=== PATIENT | female | born 1980 | race Caucasian/White ===

== ENCOUNTER 2016-06-07 14:20 | Emergency (ER) | payer BC ==
[~2016-06-07] VITALS: Ht 170.2 cm; Wt 86.0 kg
[2016-06-07 15:00] VITALS: BP 107/74; PULSE 72; RESP 17; TEMP 98.4; O2SAT 98
[2016-06-07] MEDS ORDERED: ONDANSETRON HCL 4 MG/2 ML VIAL IVP ONE (15:15)
[2016-06-07] MEDS ORDERED: SODIUM CHLORIDE 0.9% FLUSH 5 ML FLUSH IVF PRN (15:15)
[2016-06-07] MEDS ORDERED: SODIUM CHLOR 0.9% 1000 ML INJ 1,000 ML IV ONE ×2 (15:15)
--- NOTE | 2016-06-07 15:20 | PD ---
HPI Chief Complaint: GI Complaint Time Seen by Provider: 15:05 Travel History International Travel<30 days: No Contact w/Intl Traveler<30days: No Traveled to known affect area: No History of Present Illness HPI This 36-year-old female says she's had vomiting and diarrhea for the last 4 days. She says that several people where she works at been sick. Having a little bit of abdominal pain. She is not aware of fever or chills. There is been no recent travel. PFSH Past Medical History Medical History: Denies Significant Hx Immunizations Current: Yes Influenza Vaccination: No ?: Not LMP: 05/26/2016 Past Surgical History Other Surgery: Yes (BREAST REDUCTION 2003) Social History Alcohol Use: Yes (OCCASIONAL) Tobacco Use: Yes (/2 PPD) Substance Use: Yes (RARE THC) Allergies-Medications (Allergen,Severity, Reaction): Coded Allergies: No Known Allergies (Unverified , 06/07/16) Reported Meds & Prescriptions Reported Meds & Active Scripts Active No Active Prescriptions or Reported Medications Review of Systems General / Constitutional: No: Fever, Chills Eyes: No: Diploplia HENT: No: Headaches, Vertigo Cardiovascular: No: Chest Pain or Discomfort Respiratory: No: Cough Gastrointestinal: Positive: Vomiting, Diarrhea Genitourinary: No: Frequency, Dysuria Musculoskeletal: No: Myalgias Skin: No Rash Neurologic: No: Weakness Physical Exam Narrative GENERAL: Well-developed female SKIN: Warm and dry. HEAD: Atraumatic. Normocephalic. EYES: Pupils equal and round. No scleral icterus. No injection or drainage. ENT: No nasal bleeding or discharge. Mucous membranes dry NECK: Trachea midline. No JVD. CARDIOVASCULAR: Regular rate and rhythm. No murmur appreciated. RESPIRATORY: No accessory muscle use. Clear to auscultation. Breath sounds equal bilaterally. GASTROINTESTINAL: Abdomen soft, non-tender, nondistended. Hepatic and splenic margins not palpable. MUSCULOSKELETAL: No obvious deformities. No clubbing. No cyanosis. No edema. NEUROLOGICAL: Awake and alert. No obvious cranial nerve deficits. Motor grossly within normal limits. Normal speech. PSYCHIATRIC: Appropriate mood and affect; insight and judgment normal. Data Data Last Documented VS Vital Signs Date Time Temp Pulse Resp B/P Pulse Ox O2 Delivery O2 Flow Rate FiO2 06/07/16 15:00 98.4 72 17 107/74 98 Orders Complete Blood Count With Diff (06/07/16 15:15) Basic Metabolic Panel (Bmp) (06/07/16 15:15) Iv Access Insert/Monitor (06/07/16 15:15) Ondansetron Inj (Zofran Inj) (06/07/16 15:15) Sodium Chlor 0.9% 1000 Ml Inj (Ns 1000 M (06/07/16 15:15) Sodium Chloride 0.9% Flush (Ns Flush) (06/07/16 15:15) Sodium Chlor 0.9% 1000 Ml Inj (Ns 1000 M (06/07/16 15:15) Labs Laboratory Tests Test 06/07/16 15:40 White Blood Count 5.1 TH/MM3 Red Blood Count 4.65 MIL/MM3 Hemoglobin 13.6 GM/DL Hematocrit 39.7 % Mean Corpuscular Volume 85.4 FL Mean Corpuscular Hemoglobin 29.3 PG Mean Corpuscular Hemoglobin 34.3 % Concent Red Cell Distribution Width 12.3 % Platelet Count 304 TH/MM3 Mean Platelet Volume 8.1 FL Neutrophils (%) (Auto) 42.8 % Lymphocytes (%) (Auto) 41.8 % Monocytes (%) (Auto) 7.8 % Eosinophils (%) (Auto) 3.1 % Basophils (%) (Auto) 4.5 % Neutrophils # (Auto) 2.2 TH/MM3 Lymphocytes # (Auto) 2.1 TH/MM3 Monocytes # (Auto) 0.4 TH/MM3 Eosinophils # (Auto) 0.2 TH/MM3 Basophils # (Auto) 0.2 TH/MM3 CBC Comment DIFF FINAL Differential Comment Sodium Level 143 MEQ/L Potassium Level 3.9 MEQ/L Chloride Level 109 MEQ/L Carbon Dioxide Level 28.4 MEQ/L Anion Gap 6 MEQ/L Blood Urea Nitrogen 11 MG/DL Creatinine 0.84 MG/DL Estimat Glomerular Filtration 78 ML/MIN Rate Random Glucose 92 MG/DL Calcium Level 8.6 MG/DL [facility] Medical Decision Making Medical Screen Exam Complete: Yes Emergency Medical Condition: Yes Medical Record Reviewed: Yes Differential Diagnosis Differential includes food poisoning, gastroenteritis, dehydration Narrative Course Blood work and IV fluids have been ordered. Lab work is normal. Patient has been given IV fluids and Zofran and is feeling a bit better. Impression is gastroenteritis. She'll be released with prescription for oral Zofran Diagnosis Primary Impression: Acute gastroenteritis Scripts Ondansetron Odt (Zofran Odt)4 Mg Tab4 Mg SL Q6HR PRN (Nausea/Vomiting) #10 TAB Ref 0 Prov:Kelvin Velez MD 06/07/16 Disposition: 01 DISCHARGE HOME Condition: Stable Kelvin Velez MD Jun 07, 2016 15:20
[2016-06-07 15:56] LABS: AUTOMATED NEUTROPHIL # 2.2 TH/MM3 (1.8-7.7); BASOPHIL # 0.2 TH/MM3 (0-0.2); BASOPHIL % 4.5 % (0.0-2.0); EOSINOPHIL # 0.2 TH/MM3 (0-0.4); EOSINOPHIL % 3.1 % (0.0-4.0); HEMATOCRIT 39.7 % (35.0-46.0); HEMO FLAGS DIFF FINAL; LYMPH % 41.8 % (9.0-44.0); LYMPHOCYTE # 2.1 TH/MM3 (1.0-4.8); MEAN CELL VOLUME 85.4 FL (80.0-100.0); MEAN CORPUSCULAR HEMOGLOBIN 29.3 PG (27.0-34.0); MEAN CORPUSCULAR HGB CONC 34.3 % (32.0-36.0); MONO % 7.8 % (0.0-8.0); NEUT % 42.8 % (16.0-70.0); PLATELET COUNT 304 TH/MM3 (150-450); RED BLOOD COUNT 4.65 MIL/MM3 (4.00-5.30); RED CELL DISTRIBUTION WIDTH 12.3 % (11.6-17.2); WHITE BLOOD COUNT 5.1 TH/MM3 (4.0-11.0)
[2016-06-07 16:04] LABS: POTASSIUM 3.9 MEQ/L (3.5-5.1)
[2016-06-07 16:07] LABS: BICARBONATE 28.4 MEQ/L (21.0-32.0)
[2016-06-07 16:15] VITALS: BP 106/56; PULSE 61; RESP 16; O2SAT 99
[2016-06-07] MEDS ORDERED: ZOFR4TAB3 SL (16:17)
[2016-06-07 17:15] VITALS: BP 105/57; PULSE 57; RESP 16; O2SAT 99
== END 2016-06-07 17:33 | disposition home or self-care (01) ==
LOC: PHED 14:20
DX: K52.9 Noninfective gastroenteritis and colitis, unspecified (principal); R10.9 Unspecified abdominal pain; F17.210 Nicotine dependence, cigarettes, uncomplicated; F12.90 Cannabis use, unspecified, uncomplicated; R19.7 Diarrhea, unspecified
CPT/HCPCS: 80048; 85025; 96361; 96374; 99284; J2405; J7030

== ENCOUNTER 2017-04-10 20:58 | Emergency (ER) | payer BC ==
[~2017-04-10] VITALS: Ht 170.2 cm; Wt 86.7 kg
[~2017-04-10 20:58] MED LIST: ZOFR4TAB3 SL
[2017-04-10 21:18] VITALS: BP 122/57; PULSE 75; RESP 16; TEMP 98.6; O2SAT 98
[2017-04-11] VITALS: BP 112/81; PULSE 70; RESP 18; TEMP 98.3; O2SAT 100
--- NOTE | 2017-04-11 00:14 | PD ---
HPI Chief Complaint: Cold / Flu Symptoms Time Seen by Provider: 00:10 Travel History International Travel<30 days: No Contact w/Intl Traveler<30days: No Traveled to known affect area: No History of Present Illness HPI The patient is a 37-year-old female that has had generalized myalgias, persistent cough productive of green/brown sputum, sore throat for about 3 days. Occasionally she has some slight blood in her stool and has a diarrhea stool. She denies any abdominal pain or flank pain. She denies any dysuria, frequency or urgency. She states there is no possibility of . Her last menstrual period was on the eighth of last month and normal. PFS Past Medical History Medical History: Denies Significant Hx Diminished Hearing: No Immunizations Current: Yes Tetanus Vaccination: < 5 Years Influenza Vaccination: No ?: Unknown LMP: 03/09/17 : 2 Miscarriage: 2 Past Surgical History Other Surgery: Yes (BREAST REDUCTION ) Social History Alcohol Use: Yes (SOCIALLY) Tobacco Use: Yes (1 PPD ) Substance Use: Yes (MARIJUANA OCC ) Allergies-Medications (Allergen,Severity, Reaction): Coded Allergies: No Known Allergies (Unverified , 06/07/16) Reported Meds & Prescriptions Reported Meds & Active Scripts Active No Active Prescriptions or Reported Medications Review of Systems Except as stated in HPI: all other systems reviewed are Neg Physical Exam Narrative GENERAL: The patient is alert, oriented 3 in no respiratory distress. Her vital signs are normal. SKIN: Focused skin assessment warm/dry. HEAD: Atraumatic. Normocephalic. EYES: Pupils equal and round. No scleral icterus. No injection or drainage. ENT: No nasal bleeding or discharge. Mucous membranes pink and moist. The throat is minimally red and erythematous without exudate or abscess. The tympanic membranes are clear. NECK: Trachea midline. No JVD. CARDIOVASCULAR: Regular rate and rhythm. No murmur appreciated. RESPIRATORY: No accessory muscle use. Clear to auscultation. Breath sounds equal bilaterally. GASTROINTESTINAL: Abdomen soft, non-tender, nondistended. Hepatic and splenic margins not palpable. No guarding or rebound is present. MUSCULOSKELETAL: No obvious deformities. No clubbing. No cyanosis. No edema. NEUROLOGICAL: Awake and alert. No obvious cranial nerve deficits. Motor grossly within normal limits. Normal speech. PSYCHIATRIC: Appropriate mood and affect; insight and judgment normal. Data Data Last Documented VS Vital Signs Date Time Temp Pulse Resp B/P (MAP) Pulse Ox O2 Delivery O2 Flow Rate FiO2 04/11/17 00:50 20 04/11/17 00:00 98.3 70 112/81 (91) 100 Room Air Orders Orders Group A Rapid Strep Screen (04/11/17 00:10) Influenzae A/B Antigen (04/11/17 00:10) Chest, Pa & Lat (04/11/17 00:10) Strep Culture (Group A) (04/11/17 00:10) MDM Medical Decision Making Medical Screen Exam Complete: Yes Emergency Medical Condition: Yes Medical Record Reviewed: Yes Interpretation(s) The chest x-ray shows no acute cardiopulmonary disease. The strep screen is negative for group A strep antigen. The influenza A/B antigen is negative for flu a and flu B antigen. Differential Diagnosis Flu syndrome, strep pharyngitis, nonspecific viral syndrome, viral URI, bronchitis, pneumonia Narrative Course The patient has a nonspecific viral syndrome. She will be given a seven-day work excuse and is given a prescription for 600 mg Motrin to take one tablet 3 times daily. She needs to follow-up with a primary care physician. She needs to increase clear liquid intake. Procedures EKG Prior to Arrival: No EKG Not Completed: EKG Not Medically Necessary Diagnosis Primary Impression: Viral upper respiratory infection Med/Other Pt SpecificInfo: Prescription(s) given Scripts Ibuprofen (Ibuprofen) 600 Mg Tab 600 MG PO TID, #31 TAB 0 Refills Prov: Kenneth Clark MD 04/11/17 Disposition: 01 DISCHARGE HOME Condition: Stable Kenneth Clark MD Apr 11, 2017 00:14
--- NOTE | 2017-04-11 00:38 | RADRPT ---
EXAM DATE/TIME: 04/11/2017 00:23 [facility] COMPARISON: No previous studies available for comparison. INDICATIONS : Cough, flu-like symptoms for 3 days MEDICAL HISTORY : None. SURGICAL HISTORY : Breast reduction surgery ENCOUNTER: Initial ACUITY: 3 days PAIN SCORE: 3/10 LOCATION: Bilateral chest FINDINGS: PA and lateral views of the chest demonstrate the lungs to be symmetrically aerated without evidence of mass, infiltrate or effusion. The cardiomediastinal contours are unremarkable. Osseous structure s are intact. CONCLUSION: 1. No acute cardiopulmonary disease. Gael Link MD on April 11, 2017 at 0:36 Board Certified Radiologist. This report was verified electronically.
[2017-04-11] MEDS ORDERED: IBUP-232 PO (01:08)
[2017-04-11] MEDS ORDERED: IBUPROFEN 800 MG TAB PO ONE (01:15)
[2017-04-11 01:29] VITALS: BP 112/75
== END 2017-04-11 01:33 | disposition home or self-care (01) ==
LOC: PHED 20:58
DX: J06.9 Acute upper respiratory infection, unspecified (principal); F17.210 Nicotine dependence, cigarettes, uncomplicated
CPT/HCPCS: 71020; 87081; 87804; 87880; 99284

== ENCOUNTER 2017-06-18 12:03 | Emergency (ER) | payer BC ==
[~2017-06-18] VITALS: Ht 172.7 cm; Wt 86.0 kg
[~2017-06-18 12:03] MED LIST changes: +IBUP-232 PO; -ZOFR4TAB3 SL
[2017-06-18 12:13] VITALS: BP 138/81; PULSE 74; RESP 17; TEMP 98.4; O2SAT 98
[2017-06-18] MEDS ORDERED: KETOROLAC TROMETHAMINE 30 MG/ML (IVP) VIAL IV PUSH ONE (13:00)
[2017-06-18] MEDS ORDERED: SODIUM CHLOR 0.9% 1000 ML INJ 1,000 ML IV ONE (13:00)
--- NOTE | 2017-06-18 13:11 | PD ---
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 Patient reports that she normally is able to control the pain of her menstrual cycles at home but she took [id number] analgesia at home and it is not helping and she was up all night. She denies any diarrhea. She has been diagnosed with ovarian cysts in the past. [facility] Past Medical History Medical History: Denies Significant Hx Diminished Hearing: No Tetanus Vaccination: Unknown Influenza Vaccination: No ?: Not LMP: 06/17/2016 : 2 Miscarriage: 2 Past Surgical History Other Surgery: Yes (BREAST REDUCTION ) Social History Alcohol Use: Yes (SOCIALLY) Tobacco Use: Yes (1 PPD ) Substance Use: Yes (MARIJUANA OCC ) Allergies-Medications (Allergen,Severity, Reaction): Coded Allergies: latex (Verified Allergy, Intermediate, RASH, 06/18/17) Reported Meds & Prescriptions Reported Meds & Active Scripts Active Ibuprofen 600 Mg Tab 600 Mg PO TID Review of Systems Except as stated in HPI: all other systems reviewed are Neg Physical Exam Narrative GENERAL:Well appearing, no acute distress SKIN: Focused skin assessment warm and dry. HEAD: Atraumatic. Normocephalic. EYES: Pupils equal and round. No injection or drainage. ENT: Moist mucous membranes NECK: Trachea midline. CARDIOVASCULAR: Regular rate and rhythm. No murmur appreciated. RESPIRATORY: Clear to auscultation. Breath sounds equal bilaterally. GASTROINTESTINAL: Abdomen soft, tender to palpation in the lower abdomen with no rebound or guarding. 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 MUSCULOSKELETAL: No obvious deformities. NEUROLOGICAL: Awake and alert. No obvious cranial nerve deficits. Moving all extremities. PSYCHIATRIC: Appropriate mood and affect; insight and judgment normal. Data Data Last Documented VS Vital Signs Date Time Temp Pulse Resp B/P (MAP) Pulse Ox O2 Delivery O2 Flow Rate FiO2 06/18/17 12:32 20 06/18/17 12:13 98.4 74 138/81 (100) 98 Orders Orders Complete Blood Count With Diff (06/18/17 12:59) Comprehensive Metabolic Panel (06/18/17 12:59) ^ Insert Iv (06/18/17 12:59) Ed Urine Pregnancytest Poc (06/18/17 12:59) Ketorolac Inj (Toradol Inj) (06/18/17 13:00) Sodium Chlor 0.9% 1000 Ml Inj (Ns 1000 M (06/18/17 13:00) Labs Laboratory Tests Test 06/18/17 13:00 White Blood Count 4.7 TH/MM3 Red Blood Count 4.88 MIL/MM3 Hemoglobin 13.9 GM/DL Hematocrit 42.9 % Mean Corpuscular Volume 88.0 FL Mean Corpuscular Hemoglobin 28.4 PG Mean Corpuscular Hemoglobin Concent 32.3 % Red Cell Distribution Width 12.5 % Platelet Count 318 TH/MM3 Mean Platelet Volume 8.2 FL Neutrophils (%) (Auto) 45.1 % Lymphocytes (%) (Auto) 43.4 % Monocytes (%) (Auto) 6.0 % Eosinophils (%) (Auto) 3.2 % Basophils (%) (Auto) 2.3 % Neutrophils # (Auto) 2.1 TH/MM3 Lymphocytes # (Auto) 2.0 TH/MM3 Monocytes # (Auto) 0.3 TH/MM3 Eosinophils # (Auto) 0.2 TH/MM3 Basophils # (Auto) 0.1 TH/MM3 CBC Comment DIFF FINAL Differential Comment Blood Urea Nitrogen 8 MG/DL Creatinine 0.70 MG/DL Random Glucose 88 MG/DL Total Protein 7.5 GM/DL Albumin 3.4 GM/DL Calcium Level 8.3 MG/DL Alkaline Phosphatase 62 U/L Aspartate Amino Transf (AST/SGOT) 14 U/L Alanine Aminotransferase (ALT/SGPT) 14 U/L Total Bilirubin 0.2 MG/DL Sodium Level 140 MEQ/L Potassium Level 4.0 MEQ/L Chloride Level 109 MEQ/L Carbon Dioxide Level 24.7 MEQ/L Anion Gap 6 MEQ/L Estimat Glomerular Filtration Rate 95 ML/MIN MDM Medical Decision Making Medical Screen Exam Complete: Yes Emergency Medical Condition: Yes Interpretation(s) Afebrile, no tachycardia, normotensive no leukocytosis Electrolytes are reassuring [id number] test is negative Differential Diagnosis Menorrhagia, ovarian cyst rupture, ovarian cyst rupture, endometriosis, Narrative Course This is a 37-year-old female who presents to the emergency department with abdominal pain in the setting of her menstrual cycle. She says she has never had a menstrual cycle this painful. She is placed on a monitor and an IV was established. Labs are reassuring. Pelvic exam demonstrates a tender uterus and normal-appearing dark menses. Patient feels much better after Toradol and IV fluids. I suspect patient is having menorrhagia. It is possible she had a ruptured ovarian cyst. I think she needs to follow-up with [employer] as an outpatient. Otherwise I think she is appropriate for outpatient management and I do not think she requires imaging in the emergency department. Patient will be discharged home. Diagnosis Primary Impression: Menorrhagia Qualified Codes: N92.0 - Excessive and frequent menstruation with regular cycle Patient Instructions: General Instructions Additional Instructions: Heavy bleeding can be caused by many things including: - One of your ovaries not releasing an egg during one or more months - Growths in the uterus called fibroids - A bleeding disorder that prevents your blood from clotting normally - Side effects of some medicines, such as some types of control or blood thinners - A problem with your thyroid (a gland that makes hormones) Return to the emergency department if you: Need to use both tampons and pads at the same time because you are bleeding so much Need to change your pad or tampon during the night Or are feeling lightheaded, weak, dizzy, have chest pain, shortness of breath or are having difficulty exerting yourself Follow up with [facility] at: [facility] [address] [place] [address] Office Hours Friday - 9:00 am - 5:30 pm Friday 8:00 am - 12:00 pm Tuesdays 4:00 - 6:30 pm Med/Other Pt SpecificInfo: Prescription(s) given Scripts Ondansetron Odt (Zofran Odt) 4 Mg Tab 4 MG SL Q6HR Y for Nausea/Vomiting, #12 TAB 0 Refills Prov: Sita Kirkpatrick MD 06/18/17 Naproxen (Naproxen) 500 Mg Tab 500 MG PO BID Y for PAIN SCALE 4 TO 10, #20 TAB 0 Refills Prov: Sita Kirkpatrick MD 06/18/17 Disposition: 01 DISCHARGE HOME Condition: Stable Sita Kirkpatrick MD Jun 18, 2017 13:11
[2017-06-18 13:20] LABS: AUTOMATED NEUTROPHIL # 2.1 TH/MM3 (1.8-7.7); BASOPHIL # 0.1 TH/MM3 (0-0.2); BASOPHIL % 2.3 % (0.0-2.0); EOSINOPHIL # 0.2 TH/MM3 (0-0.4); EOSINOPHIL % 3.2 % (0.0-4.0); HEMATOCRIT 42.9 % (35.0-46.0); HEMOGLOBIN 13.9 GM/DL (11.6-15.3); LYMPH % 43.4 % (9.0-44.0); MEAN CORPUSCULAR HEMOGLOBIN 28.4 PG (27.0-34.0); MEAN CORPUSCULAR HGB CONC 32.3 % (32.0-36.0); MEAN PLATELET VOLUME 8.2 FL (7.0-11.0); MONOCYTE # 0.3 TH/MM3 (0-0.9); NEUT % 45.1 % (16.0-70.0); PLATELET COUNT 318 TH/MM3 (150-450); RED BLOOD COUNT 4.88 MIL/MM3 (4.00-5.30); RED CELL DISTRIBUTION WIDTH 12.5 % (11.6-17.2); WHITE BLOOD COUNT 4.7 TH/MM3 (4.0-11.0)
[2017-06-18 13:29] LABS: CHLORIDE 109 MEQ/L (98-107); SODIUM (NA) 140 MEQ/L (136-145)
[2017-06-18 13:32] LABS: CALCIUM 8.3 MG/DL (8.5-10.1)
[2017-06-18 13:33] LABS: ALBUMIN 3.4 GM/DL (3.4-5.0); BICARBONATE 24.7 MEQ/L (21.0-32.0); BLOOD UREA NITROGEN 8 MG/DL (7-18); GLUCOSE,RANDOM 88 MG/DL (74-106)
[2017-06-18 13:36] LABS: ALT (GPT) 14 U/L (10-53); AST (GOT) 14 U/L (15-37); GLOMERULAR FILTRATION RATE 95 ML/MIN (>89)
[2017-06-18 13:37] LABS: TOTAL BILIRUBIN ADULT 0.2 MG/DL (0.2-1.0); TOTAL PROTEIN 7.5 GM/DL (6.4-8.2)
[2017-06-18 13:39] LABS: ALKALINE PHOSPHATASE 62 U/L (45-117)
[2017-06-18] MEDS ORDERED: NAPR500T2 PO (13:54)
[2017-06-18] MEDS ORDERED: ZOFR4TAB3 SL (13:54)
[2017-06-18 14:30] VITALS: BP 101/52
== END 2017-06-18 14:48 | disposition home or self-care (01) ==
LOC: PHED 12:03
DX: N92.0 Excessive and frequent menstruation with regular cycle (principal); R11.10 Vomiting, unspecified; R50.9 Fever, unspecified; F17.200 Nicotine dependence, unspecified, uncomplicated
CPT/HCPCS: 80053; 84703; 85025; 96361; 96374; 99284; J1885; J7030